=== PATIENT | female | born 1970 | race Caucasian/White ===

== ENCOUNTER → 2022-06-06 | Outpatient (CLI) | payer BC, OTHER ==
[~2022-06-06] MED LIST: DESV50TA3; DEXL60CA
== END ==
LOC: M LABSMTC 08:22
PROVIDERS: ATTEND Anesthesiology
DX: Z01.812 Encounter for preprocedural laboratory examination (principal); Z11.52 Encounter for screening for COVID-19

== ENCOUNTER 2022-06-11 10:08 | Day surgery (SDC) | payer OTHER ==
[~2022-06-11] VITALS: Ht 162.6 cm; Wt 95.6 kg
[~2022-06-11 10:08] MED LIST changes: +NS 1,000 ML IV ONE
[2022-06-11 12:16] VITALS: BP 145/98
== END 2022-06-11 12:23 | disposition home or self-care (01) ==
LOC: M OPP 10:08
PROVIDERS: ATTEND Internal Medicine Gastroenterology
DX: Z12.11 Encounter for screening for malignant neoplasm of colon (principal); Z86.010 Personal history of colon polyps; Z80.0 Family history of malignant neoplasm of digestive organs; K64.8 Other hemorrhoids; K44.9 Diaphragmatic hernia without obstruction or gangrene; K31.7 Polyp of stomach and duodenum; F41.9 Anxiety disorder, unspecified; Z79.52 Long term (current) use of systemic steroids; Z79.899 Other long term (current) drug therapy; Z88.0 Allergy status to penicillin; Z90.49 Acquired absence of other specified parts of digestive tract; Z80.8 Family history of malignant neoplasm of other organs or systems